=== PATIENT | male | born 1970 | race Caucasian/White ===

== ENCOUNTER 2024-01-14 18:56 | Emergency (ER) | payer BC, SELFPAY ==
[2024-01-14 19:02] VITALS: BP 162/88
[2024-01-14 19:57] VITALS: BMI 27.0
[2024-01-14 20:04] VITALS: BP 137/82
[2024-01-14 20:14] LABS: % Basophils 1.2 % (0-2); % Eosinophils 4.6 % (0-6); % Immature Granulocytes 0.5 % (0-0.5); % Lymphocytes 24.9 % (20.5-51.1); % Monocytes 14.5 % (1.7-9.3); % Neutrophils 54.3 % (42.2-75.2); Absolute Basophils 0.1 10^3/uL (0-0.2); Absolute Eosinophils 0.3 10^3/uL (0-0.7); Absolute Lymphocytes 1.4 10^3/uL (1.2-3.4); Absolute Monocytes 0.8 10^3/uL (0.1-0.6); Absolute Neutrophils 3.1 10^3/uL (1.4-6.5); Hematocrit 38.4 % (39.0-52.0); Hemoglobin 12.9 g/dL (13.0-18.0); Mean Corp Hgb Conc. 33.6 g/dL (33.0-37.0); Mean Corpuscular Hgb 30.1 pg (27.0-31.0); Mean Corpuscular Volume 89.7 fL (80.0-94.0); Mean Platelet Volume 9.5 fL (7.4-10.4); Nucleated Red Blood Cells % 0 % (-); Platelet Count 172 10^3/uL (130-400); Red Blood Cell Count 4.28 10^6/uL (4.70-6.10); White Blood Cell Count 5.7 10^3/uL (4.8-10.8)
[2024-01-14 20:23] LABS: INR 1.05; PT 13.5 Sec (11.4-14.6)
[2024-01-14 20:24] LABS: APTT 31.1 Sec (23.4-35.0)
[2024-01-14 20:33] LABS: Urine Albumin Negative (Neg - Trace); Urine Bilirubin Negative (Negative); Urine Character Clear (Clear); Urine Color Yellow; Urine Glucose Negative (Negative); Urine Ketone Negative (Negative); Urine Leukocyte Negative (Negative); Urine Nitrite Negative (Negative); Urine Occult Blood Negative (Negative); Urine Specific Gravity 1.015 (<1.030); Urine Urobilinogen 1+ (Neg - 1+)
[2024-01-14 20:38] LABS: ALT (SGPT) 354 U/L (0-50); AST (SGOT) 112 U/L (17-59); Albumin 4.1 g/dl (3.5-5.0); Alkaline Phosphatase 213 U/L (38-126); Blood Urea Nitrogen 28 mg/dl (9-20); Calcium 9.3 mg/dl (8.4-10.2); Carbon Dioxide 23 mmol/L (22-30); Chloride 108 mmol/L (98-107); Estimated Creatinine Clearance 102 ml/min; Glucose 98 mg/dl (70-99); Lipase 65 U/L (23-300); Potassium 4.1 mmol/L (3.5-5.1); Sodium 138 mmol/L (135-145); Total Bilirubin 0.6 mg/dl (0.2-1.3); Total Protein 6.7 g/dl (6.3-8.2); eGFR > 60.00
[2024-01-14 21:00] VITALS: BP 130/82
--- NOTE | 2024-01-14 22:20 | ED.GENMED ---
History of Present Illness
General
Chief Complaint: Abnormal Lab Value
Source: patient
Exam Limitations: none
Time Seen by Provider: 01/14/24 20:02
Nursing documentation reviewed up to this point in time: agreed with
History of Present Illness
History of Present Illness:
54-year-old male past medical history of hypertension presenting to the emergency department today with concerns of elevated liver enzymes. He claims that he had some vague fatigue but denies any specific additional symptoms. Denies any symptoms
proceeding getting labs. He claims that this was a routine follow-up.
Review of Systems
Review of Systems
Allergies reviewed?: Yes
All Other Systems: ROS reviewed and negative except as documented in HPI and ROS
Phy Exam
Physical Exam
Physical Exam:
GENERAL: Alert , in no apparent distress
EYE: pupils equal and reactive
NECK: Supple, no significant adenopathy.
ENT: o/p clr, mmm.
CARDIAC: Regular rate and rhythm .
LUNGS: Clear breath sounds bilaterally, no acute respiratory distress, no wheezes/rales/rhonchi
ABDOMEN: Soft, without focal tenderness, no r/g, no cvat
NEUROLOGICAL: Alert and oriented, no focal neuro deficits
SKIN: Warm and dry, skin intact.
MUSCULOSKELETAL: No edema, well perfused.
PSYCH: Normal and appropriate interaction.
Course
Orders/Labs/Results
Orders:
Orders
01/14/24 20:07
Complete Blood Count/With Diff Urgent
Comprehensive Metabolic Panel Urgent
Hepatitis A IgM Antibody Urgent
Comment: ADD ON
Hepatitis B Core Ab, Total Urgent
Comment: ADD ON
Hepatitis B Surface Antibody Urgent
Comment: ADD ON
Hepatitis B Surface Antigen Urgent
Comment: ADD ON
Hepatitis C Antibody Urgent
Comment: ADD ON
Lipase Urgent
PTT Urgent
Prothrombin Time Urgent
01/14/24 20:24
Urinalysis Reflex To Culture Urgent
Date Specimen was Collected: 01/14/24
Time Specimen was Collected: 20:21
01/14/24 20:46
Add On- LAB Urgent
Tests Added?: ED hepatitis panel, hepatitis A IgM antibody, hepatitis B core AB
Abnormal Lab Results
01/14/24
20:07
RBC 4.28 L 10^6/uL
(4.70-6.10)
Hgb 12.9 L g/dL
(13.0-18.0)
Hct 38.4 L %
(39.0-52.0)
Absolute Monos (auto) 0.8 H 10^3/uL
(0.1-0.6)
Monocytes % 14.5 H %
(1.7-9.3)
Chloride 108 H mmol/L
(98-107)
BUN 28 H mg/dl
(9-20)
AST 112 H U/L
(17-59)
ALT 354 H U/L
(0-50)
Alkaline Phosphatase 213 H U/L
(38-126)
01/14/24 20:07
01/14/24 20:07
Vital Signs
Initial and Last Documented VS:
Initial Vital Signs
Temp Pulse Resp BP Pulse Ox
98.2 F 60 16 162/88 98
01/14/24 19:02 01/14/24 19:02 01/14/24 19:02 01/14/24 19:02 01/14/24 19:02
Last Documented Vital Signs
Temp Pulse Resp BP Pulse Ox
98.2 F 60 16 130/82 97
01/14/24 19:02 01/14/24 19:02 01/14/24 19:02 01/14/24 21:00 01/14/24 21:45
MDM/Problems Addressed
MDM/Problems Addressed:
54-year-old male presenting to the emergency department today with concerns of elevated liver function test including ALT of 354 AST of 112 and alk phos of 213. Patient is asymptomatic no abdominal pain no liver enlargement no medication use no
alcohol use no recent travel no recent upper respiratory or GI illness. Patient advised for close outpatient follow-up for repeated testing and potential ultrasound. Return precautions given.
*Critical Care Note
Total Time (30-74mins, 75-104mins- exclusive of procedures): Not Applicable
ED Attending Note
-
Portions of this chart may have been created with voice recognition software.� Occasional wrong word or��sound alike� substitutions may have occurred due to the inherent limitations of voice recognition software.
Discharge Plan
Departure
Patient Disposition: Home (Routine Discharge)
Date of Disposition: 01/14/24
Time of Disposition: 22:22
Patient with high blood pressure during this ER visit?: No
Condition: Good
Covid-19: Not Applicable
Discharge Problem:
Transaminitis
Instructions: Liver Function Test
Prescriptions:
No Action
terazosin 1 mg Capsule
1 mg PO DAILY
amlodipine 5 mg Tablet
5 mg PO DAILY
Activity Restrictions/Additional Instructions:
You came to the emergency department today with concerns of elevated liver function test. Please follow-up closely for outpatient ultrasound and repeated labs. Return to the emergency department for any worsening, new or concerning symptoms. In
the meantime please avoid any liver toxic medications or alcohol.
Interventions
Interventions:
*Risk Screen - Suicide Last Done: 01/14/24 19:57
*General Assessment Last Done: 01/14/24 19:57
*Neglect/Abuse Screening Last Done: 01/14/24 19:57
ED- Fall Risk Assessment Last Done: 01/14/24 19:57
*ED COVID-19 Vaccine History Last Done: 01/14/24 19:07
Discharge Date and Time
Print Language: ICELANDIC
[2024-01-16 18:26] LABS: Hepatitis B Surface Antigen Negative (Negative)
[2024-01-16 18:44] LABS: Hepatitis B Core Ab, Total Negative (Negative); Hepatitis B Surface Antibody Negative; Hepatitis C Antibody Negative (Negative)
[2024-01-16 19:02] LABS: Hepatitis A IgM Antibody Negative (Negative)
== END 2024-01-14 23:02 | disposition home or self-care (01) ==
LOC: EMR 18:56
PROVIDERS: Physician Assistant; EMERGENCY PHYSICIAN Emergency Medicine; FAMILY PHYSICIAN Nurse Practitioner Family
DX: R74.01 Elevation of levels of liver transaminase levels (principal); I10 Essential (primary) hypertension
CPT/HCPCS: 99283; 80053; 81003; 83690; 85025; 85610; 85730; 86704; 86706; 86709; 86803; 87340